=== PATIENT | female | born 1985 | race Caucasian/White ===

== ENCOUNTER → 2017-11-30 | Outpatient (CLI) | payer OTHER | END | disposition home or self-care (01) | LOC: CFH 14:37 | PROVIDERS: ATTEND Psychiatry & Neurology Neurology | DX: R51 Headache (principal); H81.10 Benign paroxysmal vertigo, unspecified ear | CPT/HCPCS: 70551 ==

== ENCOUNTER 2018-12-22 05:15 | Day surgery (SDC) | payer OTHER ==
[~2018-12-22] VITALS: Ht 170.2 cm; Wt 98.9 kg
[2018-12-22] MEDS ORDERED: LACTATED RINGERS 1,000 ML IV SCH (05:52)
[2018-12-22] MEDS ORDERED: OXYC-302 PO (05:55)
[2018-12-22] MEDS ORDERED: SUMA50TA4 PO (05:55)
[2018-12-22] MEDS ORDERED: CYCL-259 PO (05:55)
[2018-12-22] MEDS ORDERED: DESO1TAB72 PO (05:55)
[2018-12-22 05:58] VITALS: BP 122/85
[2018-12-22] MEDS ORDERED: LIDOCAINE-MPF 1%, 2ML INFIL ONE (06:00)
[2018-12-22] MEDS ORDERED: LIDOCAINE 1%-EPI 1:100K, 20ML ONE (06:02)
[2018-12-22 06:19] LABS: HCG UR SG 1.024 (1.003-1.030)
[2018-12-22] MEDS ORDERED: SCOPOLAMINE PATCH, 1.5MG PATCH.TD72 TD ONE (06:58)
[2018-12-22] MEDS ORDERED: MIDAZOLAM 1 MG/ML, 2ML ONE (07:01)
[2018-12-22] MEDS ORDERED: SUCCINYLCHOLINE 20 MG/ML, 10ML ONE (07:01)
[2018-12-22] MEDS ORDERED: FENTANYL PF 250 MCG/5ML ONE (07:01)
[2018-12-22] MEDS ORDERED: PROPOFOL 10 MG/ML, 20ML ONE (07:03)
[2018-12-22] MEDS ORDERED: CEFAZOLIN 1,000 MG ONE ×2 (07:03→07:04)
[2018-12-22] MEDS ORDERED: DEXAMETHASONE 4 MG/ML, 1ML ONE ×2 (07:03)
[2018-12-22] MEDS ORDERED: ONDANSETRON 2MG/ML, 2ML ONE (07:20)
[2018-12-22] MEDS ORDERED: ALBUTEROL SULFATE 2.5 MG/3 ML NPPB PRN (08:00)
[2018-12-22] MEDS ORDERED: ACETAMINOPHEN 325 MG TABLET PO PRN (08:00)
[2018-12-22] MEDS ORDERED: ONDANSETRON ODT 8 MG PO PRN (08:00)
[2018-12-22] MEDS ORDERED: PROMETHAZINE 12.5 MG SUPP PR PRN (08:00)
[2018-12-22] MEDS ORDERED: OXYcodone 5 MG/5 ML ORAL.SOL UDC PO PRN (08:00)
[2018-12-22] MEDS ORDERED: MIDAZOLAM 1 MG/ML, 2ML IV PRN (08:00)
[2018-12-22] MEDS ORDERED: FENTANYL PF 100 MCG/2ML IV PRN (08:00)
[2018-12-22] MEDS ORDERED: hydrALAzine 20 MG/ML, 1ML IV PRN (08:00)
[2018-12-22] MEDS ORDERED: ONDANSETRON 2MG/ML, 2ML IV PRN (08:00)
[2018-12-22] MEDS ORDERED: LABETALOL 5MG/ML, 20ML IV PRN (08:00)
[2018-12-22] MEDS ORDERED: EPHEDRINE 50 MG/ML, 1ML IVPush PRN (08:00)
[2018-12-22] MEDS ORDERED: DIAZEPAM 5 MG/ML, 2ML IVPush PRN (08:00)
[2018-12-22] MEDS ORDERED: HYDROmorphone 2 MG/ML, 1ML IVPush PRN (08:00)
[2018-12-22] MEDS ORDERED: HALOPERIDOL 5 MG/ML IV PRN (08:00)
[2018-12-22] MEDS ORDERED: PROMETHAZINE 25 MG/ML, 1ML IV PRN (08:00)
[2018-12-22] MEDS ORDERED: MEPERIDINE/PF 25MG/ML,1ML IVPush PRN (08:00)
== END 2018-12-22 09:20 | disposition home or self-care (01) ==
LOC: OUT 05:15
PROVIDERS: ATTEND Surgery
DX: R22.1 Localized swelling, mass and lump, neck (principal); M79.89 Other specified soft tissue disorders; G43.909 Migraine, unspecified, not intractable, without status migrainosus; F15.90 Other stimulant use, unspecified, uncomplicated; E66.9 Obesity, unspecified; Z68.20 Body mass index [BMI] 20.0-20.9, adult; Z98.890 Other specified postprocedural states; Z88.5 Allergy status to narcotic agent; Z91.018 Allergy to other foods; Z72.89 Other problems related to lifestyle
CPT/HCPCS: 21555; 81025; 88304; J0330; J0690; J1100; J2250; J2405; J2704; J3010; J3490; J7120; 88305